=== PATIENT | male | born 1990 | race Two or more races ===

== ENCOUNTER 2017-03-08 12:15 | Emergency (ER) | payer OTHER ==
[~2017-03-08] VITALS: Ht 172.7 cm; Wt 65.8 kg
[2017-03-08] MEDS ORDERED: NO MEDICATIONS (12:29)
== END 2017-03-08 13:30 | disposition home or self-care (01) ==
LOC: SED 12:15
DX: S61.412A Laceration without foreign body of left hand, initial encounter (principal); Z23 Encounter for immunization; W26.0XXA Contact with knife, initial encounter; Y93.89 Activity, other specified; Y92.69 Other specified industrial and construction area as the place of occurrence of the external cause; Y99.0 Civilian activity done for income or pay
CPT/HCPCS: 12001; 90471; 90715; 99283